=== PATIENT | female | born 1950 | race Asian ===

== ENCOUNTER 2018-11-15 09:17 | Inpatient (IN) | payer MEDICARE, OTHER ==
[2018-11-15 10:13] LABS: ADD MAN DIFF? NO
[2018-11-15 10:20] LABS: WHITE BLOOD COUNT 6.6 10^3/ul (4.8-10.8)
[2018-11-15 10:20] LABS: ABNORMAL IP MESSAGE 1; BASOPHILS % 0.5 % (0.0-2.0); EOSINOPHILS # 0.2 10^3/ul (0.0-0.5); EOSINOPHILS % 2.4 % (0.0-7.0); HEMATOCRIT 33.5 % (37.0-47.0); LYMPHOCYTES # 0.6 10^3/ul (0.8-2.9); LYMPHOCYTES % 9.4 % (15.0-51.0); MEAN CORPUSCULAR HEMOGLOBIN 31.6 pg (29.0-33.0); MEAN CORPUSCULAR HGB CONC 32.8 g/dl (32.0-37.0); MEAN CORPUSCULAR VOLUME 96.3 fl (82.0-101.0); MEAN PLATELET VOLUME 12.2 fl (7.4-10.4); MONOCYTE # 0.8 10^3/ul (0.3-0.9); MONOCYTES % 11.4 % (0.0-11.0); NEUTROPHILS % 75.7 % (39.0-77.0); PLATELET COUNT 70 10^3/UL (140-415); RED BLOOD COUNT 3.48 10^6/ul (4.20-5.40); RED CELL DISTRIBUTION WIDTH 12.6 % (11.5-14.5)
[2018-11-15 10:24] LABS: POSITIVE DIFF @See below
[2018-11-15] MEDS: CEFEPIME 2GM/50 ML (PMX) 50 ML IVPB (10:30)
[2018-11-15 10:39] LABS: ALANINE AMINOTRANSFERASE 16 IU/L (13-69); ALBUMIN 4.3 g/dl (3.3-4.9); ALBUMIN/GLOBULIN RATIO 1.65; ALKALINE PHOSPHATASE 58 IU/L (42-121); ANION GAP 10 (5-13); ASPARTATE AMINO TRANSFERASE 26 IU/L (15-46); BILIRUBIN,INDIRECT 0.6 mg/dl (0-1.1); BILIRUBIN,TOTAL 0.6 mg/dl (0.2-1.3); BLOOD UREA NITROGEN 28 mg/dl (7-20); CALCIUM 9.1 mg/dl (8.4-10.2); CARBON DIOXIDE 27 mmol/L (21-31); CHLORIDE 103 mmol/L (97-110); CREATININE 1.04 mg/dl (0.44-1.00); Estimated GFR 53 mL/min (>60); GLUCOSE 135 mg/dl (70-220); POTASSIUM 4.2 mmol/L (3.5-5.1); SODIUM 140 mmol/L (135-144); TOTAL PROTEIN 6.9 g/dl (6.1-8.1)
[2018-11-15 10:40] LABS: PROTIME 12.3 Sec (11.9-14.9)
[2018-11-15 10:41] LABS: PARTIAL THROMBOPLASTIN TIME 33.4 Sec (23.0-35.0)
[2018-11-15 10:51] LABS: TROPONIN-I < 0.012 ng/ml (0.000-0.120)
[2018-11-15] MEDS ORDERED: ONDANSETRON 4 MG INJ IV (11:00)
[2018-11-15 11:09] LABS: BAND NEUTROPHILS #M 0.7 10^3/ul (0.0-0.6); BAND NEUTROPHILS % (M) 12 % (0-4); BASOPHILS % (M) 1 % (0-2); EOSINOPHILS % (M) 3 % (0-7); GIANT THROMBO% (M) 1 % (0-0); LYMPHOCYTES #M 0.3 10^3/ul (0.8-2.9); LYMPHOCYTES % (M) 6 % (15-51); MONOCYTE #M 0.5 10^3/ul (0.3-0.9); MONOCYTES % (M) 8 % (0-11); PLATELET ESTIMATE DECREASED; POIKILOCYTOSIS 2+ (0-0); REACTIVE LYMPHOCYTES #M 0.5 10^3/ul (0.0-0.0); REACTIVE LYMPHOCYTES% (M) 8 % (0-0); SEG NEUT #M 4.1 10^3/ul (1.6-7.5); SEGMENTED NEUTROPHILS (M) % 62 % (39-77); SMUDGE%M 7 % (0-0)
[2018-11-15] MEDS: ACETAMINOPHEN 325 MG TAB PO (11:23)
[2018-11-15] MEDS: VANCOMYCIN 1 GM (PMX) 250 ML IVPB (11:52)
[2018-11-15 12:10] LABS: ADD UMIC NO; UR ASCORBIC ACID 20 mg/dL (NEGATIVE); UR BILIRUBIN (Dip) NEGATIVE (NEGATIVE); UR BLOOD (Dip) NEGATIVE (NEGATIVE); UR CLARITY CLEAR (CLEAR); UR COLOR YELLOW (YELLOW); UR GLUCOSE (Dip) NEGATIVE (NEGATIVE); UR KETONES (Dip) NEGATIVE (NEGATIVE); UR LEUKOCYTE ESTERASE (Dip) NEGATIVE Leu/ul (NEGATIVE); UR NITRITE (Dip) NEGATIVE (NEGATIVE); UR SPECIFIC GRAVITY (Dip) 1.013 (1.003-1.030); UR TOTAL PROTEIN (Dip) NEGATIVE (NEGATIVE); UR UROBILINOGEN (Dip) NEGATIVE (NEGATIVE)
[2018-11-15 13:47] LABS: LACTIC ACID 1.2 mmol/L (0.5-2.0)
[2018-11-15] MEDS ORDERED: MAGNESIUM HYDROXIDE 30ML CUP PO (15:00)
[2018-11-15] MEDS ORDERED: DOCUSATE SODIUM 100 MG CAP PO (15:00)
[2018-11-15] MEDS ORDERED: HYDROCODONE/APAP (5/325) TAB PO (15:00)
[2018-11-15] MEDS ORDERED: morphine 2 MG INJ IV (15:00)
[2018-11-15] MEDS ORDERED: NITROGLYCERIN (SL) 0.4 MG TAB SL (15:00)
[2018-11-15] MEDS ORDERED: NACL 0.9% 3 ML SYG IV (15:00)
[2018-11-15] MEDS ORDERED: GLUCOSE GEL 15 GRAM TUBE PO ×2 (16:30)
[2018-11-15] MEDS ORDERED: DEXTROSE 50% 50 ML SYRINGE IV ×2 (16:30)
[2018-11-15] MEDS ORDERED: GLUCAGON 1 MG INJ IM (16:30)
[2018-11-15] MEDS ORDERED: GLUCOSE GEL 15 GRAM TUBE BUCCAL (16:30)
[2018-11-15] MEDS: SOD CHLORIDE 0.45% 1,000 ML IV (17:12)
[2018-11-15] MEDS: ALBUTEROL/IPRATROPIUM (NEB) 3 ML AMP HHN (17:26)
[2018-11-15] MEDS: INSULIN ASPART [NOVOLOG] 3 ML PEN SC ×2 (17:58→21:00)
[2018-11-15 20:13] LABS: INR 0.88; PT RATIO 0.9
[2018-11-15 20:14] LABS: PARTIAL THROMBOPLASTIN TIME 36.5 Sec (23.0-35.0)
[2018-11-15 20:36] LABS: FREE T4 (FREE THYROXINE) 1.15 ng/dl (0.78-2.44)
[2018-11-15] MEDS: LATANOPROST 0.005% 2.5 ML OPH BOTH EYES (21:00)
[2018-11-15] MEDS ORDERED: HEPARIN 5,000 UNIT/1 ML VIAL SC (21:00)
[2018-11-15] MEDS ORDERED: DORZOLAMIDE/TIMOLOL 10 ML OPH BOTH EYES (21:00)
[2018-11-15] MEDS: MYCOPHENOLATE 250 MG CAP PO (21:57)
[2018-11-15] MEDS: ATORVASTATIN 10 MG TAB PO (21:57)
[2018-11-15] MEDS: MAGNESIUM OXIDE 400 MG TAB PO (21:57)
[2018-11-16] MEDS: DORZOLAMIDE/TIMOLOL/PF 0.2 ML DROPERETTE BOTH EYES ×3 (00:17→20:09)
[2018-11-16] MEDS: TACROLIMUS 1 MG CAP PO ×3 (00:18→20:09)
[2018-11-16] MEDS: INSULIN ASPART [NOVOLOG] 3 ML PEN SC ×4 (01:00→12:05)
[2018-11-16] MEDS: ACCU-CHEK XX (02:00)
[2018-11-16] MEDS: PANTOPRAZOLE (EC) 40 MG TAB PO (06:41)
[2018-11-16] MEDS: SOD CHLORIDE 0.45% 1,000 ML IV ×3 (06:42→22:18)
[2018-11-16 08:29] LABS: ADD MAN DIFF? NO
[2018-11-16 08:36] LABS: ABNORMAL IP MESSAGE 1; BASOPHILS % 0.3 % (0.0-2.0); EOSINOPHILS # 0.2 10^3/ul (0.0-0.5); EOSINOPHILS % 2.6 % (0.0-7.0); HEMATOCRIT 30.8 % (37.0-47.0); HEMOGLOBIN 10.2 g/dl (12.0-16.0); LYMPHOCYTES # 0.7 10^3/ul (0.8-2.9); LYMPHOCYTES % 11.6 % (15.0-51.0); MEAN CORPUSCULAR HEMOGLOBIN 31.7 pg (29.0-33.0); MEAN CORPUSCULAR HGB CONC 33.1 g/dl (32.0-37.0); MEAN CORPUSCULAR VOLUME 95.7 fl (82.0-101.0); MEAN PLATELET VOLUME 11.6 fl (7.4-10.4); MONOCYTE # 0.8 10^3/ul (0.3-0.9); MONOCYTES % 12.1 % (0.0-11.0); NEUTROPHIL # 4.5 10^3/ul (1.6-7.5); NEUTROPHILS % 72.9 % (39.0-77.0); PLATELET COUNT 81 10^3/UL (140-415); RED BLOOD COUNT 3.22 10^6/ul (4.20-5.40); RED CELL DISTRIBUTION WIDTH 12.3 % (11.5-14.5)
[2018-11-16 08:36] LABS: WHITE BLOOD COUNT 6.2 10^3/ul (4.8-10.8)
[2018-11-16] MEDS: MAGNESIUM OXIDE 400 MG TAB PO ×2 (08:44→20:09)
[2018-11-16] MEDS: MYCOPHENOLATE 250 MG CAP PO ×2 (08:44→20:09)
[2018-11-16] MEDS: predniSONE 5 MG TAB PO (08:44)
[2018-11-16] MEDS: FOLIC ACID 1 MG TAB PO (08:44)
[2018-11-16 08:56] LABS: POSITIVE DIFF @See below
[2018-11-16 08:59] LABS: ANION GAP 8 (5-13); BLOOD UREA NITROGEN 31 mg/dl (7-20); CALCIUM 8.7 mg/dl (8.4-10.2); CARBON DIOXIDE 28 mmol/L (21-31); CHLORIDE 98 mmol/L (97-110); CREATININE 1.07 mg/dl (0.44-1.00); Estimated GFR 51 mL/min (>60); GLUCOSE 91 mg/dl (70-220); MAGNESIUM 2.1 mg/dl (1.7-2.5); PHOSPHORUS 3.2 mg/dl (2.5-4.9); POTASSIUM 4.2 mmol/L (3.5-5.1); SODIUM 134 mmol/L (135-144)
[2018-11-16] MEDS ORDERED: LEVOFLOXACIN 750MG/D5W (PMX) 150 ML IVPB (09:00)
[2018-11-16 09:10] LABS: CHOL/HDL RATIO 2.3 RATIO; HDL CHOLESTEROL 54 mg/dl (35-98); LDL CHOLESTEROL,CALCULATED 52 mg/dl; TRIGLYCERIDES 117 mg/dl (0-149)
[2018-11-16 09:10] LABS: CHOLESTEROL 129 mg/dl (100-200)
[2018-11-16 09:16] LABS: HEMOGLOBIN A1C 6.1 % (0-5.9)
[2018-11-16] MEDS: ALBUTEROL/IPRATROPIUM (NEB) 3 ML AMP HHN ×4 (10:18→20:25)
[2018-11-16] MEDS ORDERED: ALBUTEROL/IPRATROPIUM (NEB) 3 ML AMP HHN (13:00)
[2018-11-16] MEDS: METHYLPREDNISOLONE 125 MG INJ IV ×3 (13:51→23:34)
[2018-11-16] MEDS: GUAIFENESIN 20 MG/ML 5ML CUP PO (17:17)
[2018-11-16] MEDS: Insulin NOVOLOG SS MILD Algorithm (SS with meals and bedtime) SC ×2 (17:26→20:58)
[2018-11-16] MEDS ORDERED: METHYLPREDNISOLONE 125 MG INJ IV (18:00)
[2018-11-16] MEDS: ATORVASTATIN 10 MG TAB PO (20:09)
[2018-11-16] MEDS: hydrALAzine 20 MG INJ IV (20:10)
[2018-11-16] MEDS ORDERED: INSULIN ASPART [NOVOLOG] 3 ML PEN SC (21:00)
[2018-11-16] MEDS: LATANOPROST 0.005% 2.5 ML OPH BOTH EYES (23:29)
[2018-11-17] MEDS: ALBUTEROL/IPRATROPIUM (NEB) 3 ML AMP HHN ×6 (01:09→20:41)
[2018-11-17] MEDS: ACCU-CHEK XX (02:20)
[2018-11-17] MEDS: CEPASTAT LOZENGE MT ×5 (02:45→21:42)
[2018-11-17] MEDS: GUAIFENESIN 20 MG/ML 5ML CUP PO ×2 (02:45→09:32)
[2018-11-17] MEDS: METHYLPREDNISOLONE 125 MG INJ IV ×4 (05:38→23:54)
[2018-11-17] MEDS: PANTOPRAZOLE (EC) 40 MG TAB PO (05:38)
[2018-11-17 06:39] LABS: ADD MAN DIFF? NO
[2018-11-17 06:46] LABS: WHITE BLOOD COUNT 4.6 10^3/ul (4.8-10.8)
[2018-11-17 06:46] LABS: ABNORMAL IP MESSAGE 1; BASOPHILS % 0.2 % (0.0-2.0); HEMATOCRIT 30.6 % (37.0-47.0); HEMOGLOBIN 10.7 g/dl (12.0-16.0); LYMPHOCYTES # 0.3 10^3/ul (0.8-2.9); LYMPHOCYTES % 7.2 % (15.0-51.0); MEAN CORPUSCULAR HEMOGLOBIN 31.9 pg (29.0-33.0); MEAN CORPUSCULAR VOLUME 91.3 fl (82.0-101.0); MEAN PLATELET VOLUME 11.3 fl (7.4-10.4); MONOCYTES % 0.9 % (0.0-11.0); NEUTROPHIL # 4.1 10^3/ul (1.6-7.5); NEUTROPHILS % 90.6 % (39.0-77.0); PLATELET COUNT 81 10^3/UL (140-415); RED BLOOD COUNT 3.35 10^6/ul (4.20-5.40); RED CELL DISTRIBUTION WIDTH 11.9 % (11.5-14.5)
[2018-11-17 06:55] LABS: POSITIVE DIFF @See below
[2018-11-17 07:05] LABS: ANION GAP 12 (5-13); BLOOD UREA NITROGEN 29 mg/dl (7-20); CALCIUM 8.7 mg/dl (8.4-10.2); CARBON DIOXIDE 25 mmol/L (21-31); CHLORIDE 97 mmol/L (97-110); CREATININE 0.97 mg/dl (0.44-1.00); Estimated GFR 57 mL/min (>60); GLUCOSE 194 mg/dl (70-220); SODIUM 134 mmol/L (135-144)
[2018-11-17] MEDS: MYCOPHENOLATE 250 MG CAP PO ×2 (08:15→20:45)
[2018-11-17] MEDS: FOLIC ACID 1 MG TAB PO (08:15)
[2018-11-17] MEDS: predniSONE 5 MG TAB PO (08:15)
[2018-11-17] MEDS: MAGNESIUM OXIDE 400 MG TAB PO ×2 (08:15→20:45)
[2018-11-17] MEDS: TACROLIMUS 1 MG CAP PO ×2 (08:16→20:45)
[2018-11-17] MEDS: Insulin NOVOLOG SS MILD Algorithm (SS with meals and bedtime) SC ×4 (08:17→20:51)
[2018-11-17] MEDS: DORZOLAMIDE/TIMOLOL/PF 0.2 ML DROPERETTE BOTH EYES ×2 (08:20→20:45)
[2018-11-17] MEDS: SOD CHLORIDE 0.45% 1,000 ML IV (11:12)
[2018-11-17] MEDS: CEFEPIME 2GM/50 ML (PMX) 50 ML IVPB ×2 (11:59→21:41)
[2018-11-17] MEDS: ACETAMINOPHEN 325 MG TAB PO (12:32)
[2018-11-17] MEDS: hydrALAzine 20 MG INJ IV (12:32)
[2018-11-17] MEDS: GUAIFENESIN/DM 5ML CUP PO ×3 (13:29→21:41)
[2018-11-17] MEDS: LATANOPROST 0.005% 2.5 ML OPH BOTH EYES (20:45)
[2018-11-17] MEDS: ATORVASTATIN 10 MG TAB PO (20:45)
[2018-11-17] MEDS: ZOLPIDEM 5 MG TAB PO (21:42)
[2018-11-18] MEDS: ALBUTEROL/IPRATROPIUM (NEB) 3 ML AMP HHN ×6 (01:03→21:33)
[2018-11-18] MEDS: GUAIFENESIN/DM 5ML CUP PO (02:22)
[2018-11-18] MEDS: CEPASTAT LOZENGE MT (02:22)
[2018-11-18] MEDS: ACCU-CHEK XX ×2 (02:54→04:57)
[2018-11-18] MEDS: INSULIN ASPART [NOVOLOG] 3 ML PEN SC (03:14)
[2018-11-18] MEDS: METHYLPREDNISOLONE 125 MG INJ IV ×4 (05:32→23:58)
[2018-11-18] MEDS: PANTOPRAZOLE (EC) 40 MG TAB PO (05:32)
[2018-11-18 08:14] LABS: ADD MAN DIFF? NO
[2018-11-18 08:25] LABS: WHITE BLOOD COUNT 9.2 10^3/ul (4.8-10.8)
[2018-11-18 08:25] LABS: ABNORMAL IP MESSAGE 1; HEMOGLOBIN 9.9 g/dl (12.0-16.0); LYMPHOCYTES # 0.2 10^3/ul (0.8-2.9); LYMPHOCYTES % 2.4 % (15.0-51.0); MEAN CORPUSCULAR HEMOGLOBIN 32.1 pg (29.0-33.0); MEAN CORPUSCULAR HGB CONC 35.4 g/dl (32.0-37.0); MEAN CORPUSCULAR VOLUME 90.9 fl (82.0-101.0); MEAN PLATELET VOLUME 11.5 fl (7.4-10.4); MONOCYTE # 0.6 10^3/ul (0.3-0.9); MONOCYTES % 6.8 % (0.0-11.0); NEUTROPHIL # 8.2 10^3/ul (1.6-7.5); NEUTROPHILS % 89.4 % (39.0-77.0); PLATELET COUNT 103 10^3/UL (140-415); RED BLOOD COUNT 3.08 10^6/ul (4.20-5.40)
[2018-11-18 08:33] LABS: POSITIVE DIFF @See below
[2018-11-18 08:38] LABS: MAGNESIUM 1.9 mg/dl (1.7-2.5)
[2018-11-18 08:38] LABS: PHOSPHORUS 3.3 mg/dl (2.5-4.9)
[2018-11-18 08:43] LABS: ANION GAP 10 (5-13); BLOOD UREA NITROGEN 33 mg/dl (7-20); CARBON DIOXIDE 26 mmol/L (21-31); CHLORIDE 92 mmol/L (97-110); CREATININE 0.86 mg/dl (0.44-1.00); Estimated GFR > 60 mL/min (>60); GLUCOSE 121 mg/dl (70-220); POTASSIUM 3.9 mmol/L (3.5-5.1); SODIUM 128 mmol/L (135-144)
[2018-11-18] MEDS: Insulin NOVOLOG SS MILD Algorithm (SS with meals and bedtime) SC ×4 (08:49→21:46)
[2018-11-18] MEDS: INSULIN GLARGINE [LANTus] (100 UNITS/ML) SYG SC (08:50)
[2018-11-18] MEDS: DORZOLAMIDE/TIMOLOL/PF 0.2 ML DROPERETTE BOTH EYES ×2 (08:52→21:14)
[2018-11-18] MEDS: MYCOPHENOLATE 250 MG CAP PO ×2 (08:52→21:15)
[2018-11-18] MEDS: predniSONE 5 MG TAB PO (08:52)
[2018-11-18] MEDS: TACROLIMUS 1 MG CAP PO ×2 (08:52→21:15)
[2018-11-18] MEDS: FOLIC ACID 1 MG TAB PO (08:52)
[2018-11-18] MEDS: MAGNESIUM OXIDE 400 MG TAB PO ×2 (08:52→21:15)
[2018-11-18] MEDS: CEFEPIME 2GM/50 ML (PMX) 50 ML IVPB ×2 (08:53→21:16)
[2018-11-18 15:38] LABS: ANION GAP 9 (5-13); BLOOD UREA NITROGEN 33 mg/dl (7-20); CALCIUM 8.1 mg/dl (8.4-10.2); CARBON DIOXIDE 25 mmol/L (21-31); CHLORIDE 89 mmol/L (97-110); CREATININE 0.82 mg/dl (0.44-1.00); Estimated GFR > 60 mL/min (>60); GLUCOSE 162 mg/dl (70-220); POTASSIUM 4.1 mmol/L (3.5-5.1)
[2018-11-18] MEDS: hydrALAzine 20 MG INJ IV ×2 (15:41→20:57)
[2018-11-18] MEDS: ONDANSETRON 4 MG INJ IV (15:41)
[2018-11-18 15:58] LABS: SODIUM 123 mmol/L (135-144)
[2018-11-18] MEDS: LATANOPROST 0.005% 2.5 ML OPH BOTH EYES (21:13)
[2018-11-18] MEDS: LORAZEPAM 2 MG INJ IV (21:15)
[2018-11-18] MEDS: ATORVASTATIN 10 MG TAB PO (21:15)
[2018-11-18] MEDS: LOSARTAN 50 MG TAB PO (21:15)
[2018-11-18 21:44] LABS: ANION GAP 8 (5-13); BLOOD UREA NITROGEN 33 mg/dl (7-20); CALCIUM 8.3 mg/dl (8.4-10.2); CARBON DIOXIDE 24 mmol/L (21-31); CHLORIDE 90 mmol/L (97-110); CREATININE 0.87 mg/dl (0.44-1.00); Estimated GFR > 60 mL/min (>60); GLUCOSE 173 mg/dl (70-220); POTASSIUM 4.2 mmol/L (3.5-5.1); SODIUM 122 mmol/L (135-144)
[2018-11-18 22:44] LABS: OSMOLALITY 266 mOsm/kg (280-295)
[2018-11-19] MEDS: ACCU-CHEK XX (01:41)
[2018-11-19] MEDS: ALBUTEROL/IPRATROPIUM (NEB) 3 ML AMP HHN ×6 (01:44→20:00)
[2018-11-19] MEDS: hydrALAzine 20 MG INJ IV ×3 (04:35→21:46)
[2018-11-19] MEDS: PANTOPRAZOLE (EC) 40 MG TAB PO (05:12)
[2018-11-19] MEDS: METHYLPREDNISOLONE 125 MG INJ IV (05:12)
[2018-11-19 07:38] LABS: ADD MAN DIFF? NO
[2018-11-19 07:44] LABS: WHITE BLOOD COUNT 8.4 10^3/ul (4.8-10.8)
[2018-11-19 07:44] LABS: ABNORMAL IP MESSAGE 1; BASOPHILS % 0.1 % (0.0-2.0); HEMOGLOBIN 10.1 g/dl (12.0-16.0); LYMPHOCYTES # 0.2 10^3/ul (0.8-2.9); LYMPHOCYTES % 2.5 % (15.0-51.0); MEAN CORPUSCULAR HEMOGLOBIN 31.2 pg (29.0-33.0); MEAN CORPUSCULAR HGB CONC 34.8 g/dl (32.0-37.0); MEAN CORPUSCULAR VOLUME 89.5 fl (82.0-101.0); MEAN PLATELET VOLUME 11.1 fl (7.4-10.4); MONOCYTE # 0.5 10^3/ul (0.3-0.9); MONOCYTES % 5.7 % (0.0-11.0); NEUTROPHIL # 7.5 10^3/ul (1.6-7.5); NEUTROPHILS % 89.9 % (39.0-77.0); PLATELET COUNT 126 10^3/UL (140-415); RED BLOOD COUNT 3.24 10^6/ul (4.20-5.40); RED CELL DISTRIBUTION WIDTH 11.9 % (11.5-14.5)
[2018-11-19 07:46] LABS: POSITIVE DIFF @See below
[2018-11-19 08:07] LABS: ANION GAP 11 (5-13); BLOOD UREA NITROGEN 35 mg/dl (7-20); CALCIUM 8.3 mg/dl (8.4-10.2); CARBON DIOXIDE 24 mmol/L (21-31); CHLORIDE 90 mmol/L (97-110); CREATININE 0.97 mg/dl (0.44-1.00); Estimated GFR 57 mL/min (>60); GLUCOSE 179 mg/dl (70-220); POTASSIUM 4.1 mmol/L (3.5-5.1); SODIUM 125 mmol/L (135-144)
[2018-11-19] MEDS: Insulin NOVOLOG SS MILD Algorithm (SS with meals and bedtime) SC ×4 (08:21→21:06)
[2018-11-19] MEDS: INSULIN GLARGINE [LANTus] (100 UNITS/ML) SYG SC (08:22)
[2018-11-19] MEDS: DORZOLAMIDE/TIMOLOL/PF 0.2 ML DROPERETTE BOTH EYES ×2 (09:36→20:49)
[2018-11-19] MEDS: MAGNESIUM OXIDE 400 MG TAB PO ×2 (09:37→20:49)
[2018-11-19] MEDS: predniSONE 5 MG TAB PO (09:37)
[2018-11-19] MEDS: FOLIC ACID 1 MG TAB PO (09:37)
[2018-11-19] MEDS: MYCOPHENOLATE 250 MG CAP PO ×2 (09:37→20:49)
[2018-11-19] MEDS: TACROLIMUS 1 MG CAP PO ×2 (09:37→20:49)
[2018-11-19] MEDS: LOSARTAN 50 MG TAB PO (09:38)
[2018-11-19] MEDS: CEFEPIME 2GM/50 ML (PMX) 50 ML IVPB ×2 (09:45→20:43)
[2018-11-19 11:44] LABS: OSMOLALITY,URINE 622 mOsm/kg (250-1200)
[2018-11-19 12:07] LABS: SODIUM,URINE RANDOM 20 mmol/L (30-90)
[2018-11-19] MEDS: LEVOFLOXACIN 500MG/D5W (PMX) 100 ML IVPB (12:18)
[2018-11-19 13:29] LABS: ANION GAP 10 (5-13); BLOOD UREA NITROGEN 36 mg/dl (7-20); CALCIUM 8.1 mg/dl (8.4-10.2); CARBON DIOXIDE 25 mmol/L (21-31); CHLORIDE 90 mmol/L (97-110); CREATININE 1.01 mg/dl (0.44-1.00); Estimated GFR 55 mL/min (>60); GLUCOSE 181 mg/dl (70-220); POTASSIUM 4.3 mmol/L (3.5-5.1); SODIUM 125 mmol/L (135-144)
[2018-11-19] MEDS ORDERED: HYDROCORTISONE 2.5% 20 GM CR TOP (13:30)
[2018-11-19] MEDS: METHYLPREDNISOLONE 40 MG INJ IV ×2 (13:45→21:45)
[2018-11-19] MEDS: DIPHENHYDRAMINE 25 MG CAP PO (14:29)
[2018-11-19] MEDS: SOD CHLORIDE 0.9% 1,000 ML IV (14:29)
[2018-11-19] MEDS: LATANOPROST 0.005% 2.5 ML OPH BOTH EYES (20:49)
[2018-11-19] MEDS: ATORVASTATIN 10 MG TAB PO (20:49)
[2018-11-19] MEDS: ZOLPIDEM 5 MG TAB PO (21:46)
[2018-11-19] MEDS: SALINE 0.65% 45 ML NAS SPRAY NASAL (21:48)
[2018-11-20] MEDS: ACCU-CHEK XX (01:15)
[2018-11-20] MEDS: ALBUTEROL/IPRATROPIUM (NEB) 3 ML AMP HHN ×6 (01:33→20:37)
[2018-11-20] MEDS: SOD CHLORIDE 0.9% 1,000 ML IV (02:42)
[2018-11-20] MEDS: PANTOPRAZOLE (EC) 40 MG TAB PO (05:00)
[2018-11-20] MEDS: METHYLPREDNISOLONE 40 MG INJ IV ×3 (05:00→21:45)
[2018-11-20 06:49] LABS: ADD MAN DIFF? NO
[2018-11-20 07:00] LABS: ABNORMAL IP MESSAGE 1; HEMOGLOBIN 9.5 g/dl (12.0-16.0); LYMPHOCYTES # 0.2 10^3/ul (0.8-2.9); MEAN CORPUSCULAR HEMOGLOBIN 31.3 pg (29.0-33.0); MEAN CORPUSCULAR HGB CONC 35.2 g/dl (32.0-37.0); MEAN CORPUSCULAR VOLUME 88.8 fl (82.0-101.0); MEAN PLATELET VOLUME 11.3 fl (7.4-10.4); MONOCYTE # 0.6 10^3/ul (0.3-0.9); MONOCYTES % 9.8 % (0.0-11.0); NEUTROPHIL # 5.6 10^3/ul (1.6-7.5); PLATELET COUNT 112 10^3/UL (140-415); RED BLOOD COUNT 3.04 10^6/ul (4.20-5.40); RED CELL DISTRIBUTION WIDTH 11.9 % (11.5-14.5)
[2018-11-20 07:00] LABS: WHITE BLOOD COUNT 6.6 10^3/ul (4.8-10.8)
[2018-11-20 07:02] LABS: POSITIVE DIFF @See below
[2018-11-20 07:19] LABS: ANION GAP 8 (5-13); BLOOD UREA NITROGEN 34 mg/dl (7-20); CALCIUM 8.1 mg/dl (8.4-10.2); CARBON DIOXIDE 24 mmol/L (21-31); CHLORIDE 92 mmol/L (97-110); CREATININE 0.95 mg/dl (0.44-1.00); Estimated GFR 58 mL/min (>60); GLUCOSE 165 mg/dl (70-220); POTASSIUM 4.1 mmol/L (3.5-5.1); SODIUM 124 mmol/L (135-144)
[2018-11-20] MEDS: DORZOLAMIDE/TIMOLOL/PF 0.2 ML DROPERETTE BOTH EYES ×2 (08:18→20:46)
[2018-11-20] MEDS: predniSONE 5 MG TAB PO (08:18)
[2018-11-20] MEDS: MAGNESIUM OXIDE 400 MG TAB PO ×2 (08:19→20:45)
[2018-11-20] MEDS: TACROLIMUS 1 MG CAP PO ×2 (08:19→20:46)
[2018-11-20] MEDS: MYCOPHENOLATE 250 MG CAP PO ×2 (08:19→20:45)
[2018-11-20] MEDS: FOLIC ACID 1 MG TAB PO (08:19)
[2018-11-20] MEDS: LOSARTAN 50 MG TAB PO (08:20)
[2018-11-20] MEDS: CEFEPIME 2GM/50 ML (PMX) 50 ML IVPB ×2 (08:20→20:46)
[2018-11-20] MEDS: Insulin NOVOLOG SS MILD Algorithm (SS with meals and bedtime) SC ×4 (08:25→21:52)
[2018-11-20] MEDS: INSULIN GLARGINE [LANTus] (100 UNITS/ML) SYG SC (08:31)
[2018-11-20] MEDS: SALINE 0.65% 45 ML NAS SPRAY NASAL ×2 (11:07→17:21)
[2018-11-20] MEDS: LEVOFLOXACIN 500MG/D5W (PMX) 100 ML IVPB (13:10)
[2018-11-20] MEDS: TOLVAPTAN 15 MG TABLET PO (13:10)
[2018-11-20 15:47] LABS: ANION GAP 8 (5-13); BLOOD UREA NITROGEN 33 mg/dl (7-20); CARBON DIOXIDE 24 mmol/L (21-31); CHLORIDE 91 mmol/L (97-110); CREATININE 0.91 mg/dl (0.44-1.00); Estimated GFR > 60 mL/min (>60); GLUCOSE 207 mg/dl (70-220); POTASSIUM 4.4 mmol/L (3.5-5.1); SODIUM 123 mmol/L (135-144)
[2018-11-20] MEDS: ENOXAPARIN 40 MG/0.4 ML SYG SC (17:31)
[2018-11-20 19:53] LABS: ANION GAP 7 (5-13); BLOOD UREA NITROGEN 33 mg/dl (7-20); CALCIUM 8.3 mg/dl (8.4-10.2); CARBON DIOXIDE 26 mmol/L (21-31); CHLORIDE 92 mmol/L (97-110); CREATININE 1.07 mg/dl (0.44-1.00); Estimated GFR 51 mL/min (>60); GLUCOSE 229 mg/dl (70-220); POTASSIUM 4.5 mmol/L (3.5-5.1); SODIUM 125 mmol/L (135-144)
[2018-11-20] MEDS: CEPASTAT LOZENGE MT ×2 (20:45→23:43)
[2018-11-20] MEDS: GUAIFENESIN 20 MG/ML 5ML CUP PO (20:45)
[2018-11-20] MEDS: ATORVASTATIN 10 MG TAB PO (20:46)
[2018-11-20] MEDS: LATANOPROST 0.005% 2.5 ML OPH BOTH EYES (21:45)
[2018-11-20] MEDS: hydrALAzine 20 MG INJ IV (23:43)
[2018-11-21] MEDS: ALBUTEROL/IPRATROPIUM (NEB) 3 ML AMP HHN ×4 (00:08→12:11)
[2018-11-21] MEDS: LORAZEPAM 2 MG INJ IV (00:44)
[2018-11-21] MEDS: ACCU-CHEK XX (02:00)
[2018-11-21] MEDS: METHYLPREDNISOLONE 40 MG INJ IV ×2 (05:00→13:19)
[2018-11-21] MEDS: PANTOPRAZOLE (EC) 40 MG TAB PO (05:00)
[2018-11-21] MEDS: GUAIFENESIN/DM 5ML CUP PO (05:00)
[2018-11-21] MEDS: DIPHENHYDRAMINE 25 MG CAP PO (05:00)
[2018-11-21 06:25] LABS: ADD MAN DIFF? NO
[2018-11-21 06:33] LABS: WHITE BLOOD COUNT 7.6 10^3/ul (4.8-10.8)
[2018-11-21 06:33] LABS: ABNORMAL IP MESSAGE 1; BASOPHILS % 0.1 % (0.0-2.0); HEMATOCRIT 29.5 % (37.0-47.0); HEMOGLOBIN 10.4 g/dl (12.0-16.0); LYMPHOCYTES # 0.1 10^3/ul (0.8-2.9); LYMPHOCYTES % 1.8 % (15.0-51.0); MEAN CORPUSCULAR HEMOGLOBIN 31.6 pg (29.0-33.0); MEAN CORPUSCULAR HGB CONC 35.3 g/dl (32.0-37.0); MEAN CORPUSCULAR VOLUME 89.7 fl (82.0-101.0); MEAN PLATELET VOLUME 11.6 fl (7.4-10.4); MONOCYTES % 13.1 % (0.0-11.0); NEUTROPHIL # 6.3 10^3/ul (1.6-7.5); NEUTROPHILS % 82.8 % (39.0-77.0); PLATELET COUNT 127 10^3/UL (140-415); RED BLOOD COUNT 3.29 10^6/ul (4.20-5.40); RED CELL DISTRIBUTION WIDTH 12.1 % (11.5-14.5)
[2018-11-21 06:53] LABS: POSITIVE DIFF @See below
[2018-11-21 06:55] LABS: ANION GAP 5 (5-13); BLOOD UREA NITROGEN 33 mg/dl (7-20); CALCIUM 8.6 mg/dl (8.4-10.2); CARBON DIOXIDE 28 mmol/L (21-31); CHLORIDE 102 mmol/L (97-110); CREATININE 1.11 mg/dl (0.44-1.00); Estimated GFR 49 mL/min (>60); GLUCOSE 242 mg/dl (70-220); POTASSIUM 4.3 mmol/L (3.5-5.1); SODIUM 135 mmol/L (135-144)
[2018-11-21] MEDS: Insulin NOVOLOG SS MILD Algorithm (SS with meals and bedtime) SC ×2 (07:37→11:30)
[2018-11-21] MEDS: INSULIN GLARGINE [LANTus] (100 UNITS/ML) SYG SC (07:43)
[2018-11-21] MEDS: predniSONE 5 MG TAB PO (08:45)
[2018-11-21] MEDS: MYCOPHENOLATE 250 MG CAP PO (08:45)
[2018-11-21] MEDS: FOLIC ACID 1 MG TAB PO (08:45)
[2018-11-21] MEDS: MAGNESIUM OXIDE 400 MG TAB PO (08:45)
[2018-11-21] MEDS: DORZOLAMIDE/TIMOLOL/PF 0.2 ML DROPERETTE BOTH EYES (08:46)
[2018-11-21] MEDS: LOSARTAN 50 MG TAB PO (08:46)
[2018-11-21] MEDS: TACROLIMUS 1 MG CAP PO (08:46)
[2018-11-21] MEDS: ENOXAPARIN 40 MG/0.4 ML SYG SC (08:52)
[2018-11-21] MEDS: CEFEPIME 2GM/50 ML (PMX) 50 ML IVPB (08:55)
[2018-11-21] MEDS: LEVOFLOXACIN 500MG/D5W (PMX) 100 ML IVPB (11:31)
[2018-11-21] MEDS: SALINE 0.65% 45 ML NAS SPRAY NASAL (12:34)
[2018-11-21 15:12] LABS: ANION GAP 6 (5-13); BLOOD UREA NITROGEN 36 mg/dl (7-20); CALCIUM 8.8 mg/dl (8.4-10.2); CARBON DIOXIDE 27 mmol/L (21-31); CHLORIDE 102 mmol/L (97-110); Estimated GFR 49 mL/min (>60); GLUCOSE 201 mg/dl (70-220); POTASSIUM 4.6 mmol/L (3.5-5.1); SODIUM 135 mmol/L (135-144)
== END 2018-11-21 14:42 | disposition home or self-care (01) | DRG 194 ==
LOC: E/R 09:17 → TEL 10:59
DX: J18.9 Pneumonia, unspecified organism (principal); Z94.0 Kidney transplant status; E87.1 Hypo-osmolality and hyponatremia; E22.2 Syndrome of inappropriate secretion of antidiuretic hormone; E11.9 Type 2 diabetes mellitus without complications; Z79.4 Long term (current) use of insulin; I10 Essential (primary) hypertension; D69.6 Thrombocytopenia, unspecified; J20.9 Acute bronchitis, unspecified; H40.9 Unspecified glaucoma
CPT/HCPCS: 36415; 71045; 80048; 80053; 80061; 81003; 82962; 83036; 83605; 83735; 83930; 83935; 84100; 84300; 84439; 84443; 84484; 85025; 85610; 85730; 87040-91; 87086; 87400; 87449; 92526; 92610; 93005; 94640; 94664; 96374; 97110; 97162; 97167; 97535; 99285-25